=== PATIENT | female | born 1970 | race Caucasian/White ===

== ENCOUNTER 2017-05-24 17:19 | Emergency (ER) | payer OTHER ==
--- NOTE | 2017-05-24 18:01 | EDM.PDOC ---
ED HPI GENERAL MEDICAL PROBLEM - General Chief Complaint: Head Injury Stated Complaint: HEADACHE (HIT IN HEAD WITH VASE) Time Seen by Provider: 05/24/17 17:37 Source of Information: Reports: Patient History Limitations: Reports: No Limitations - History of Present Illness INITIAL COMMENTS - FREE TEXT/NARRATIVE: Patient is a 47-year-old female who presents to the ED complaining of pain to the posterior aspect of her left ear. Patient states this past Wednesday with moving a shelf a 4 pound ceramic vas fell from approximately 5 feet hitting her on the left side of the head. There was no loss consciousness. States she's had pain to that site since with no drainage from the ear. She also has some mild tenderness to the left lateral neck. Chronically has numbness and tingling to her hands secondary to carpal tunnel's syndrome. Denies any worsening symptoms. Denies vision changes or weakness to upper extremities. She has been eating and drinking well. Developed some mild nausea today. She does not describe the headache is worse headache of her life. She offers no additional complaints. She has a past medical history of type 2 diabetes and currently on no medications. Headache Pain Score (Numeric/FACES): 4 - Related Data Allergies Allergy/AdvReac Type Severity Reaction Status Date / Time No Known Allergies Allergy Verified 05/24/17 17:29 Home Meds: Home Meds . [No Known Home Meds] 05/24/17 [History] Past Medical History Endocrine/Metabolic History: Reports: Diabetes, Type II Social & Family History - Tobacco Use Smoking Status *Q: Never Smoker - Recreational Drug Use Recreational Drug Use: No ED ROS GENERAL - Review of Systems Review Of Systems: See Below Constitutional: Reports: No Symptoms HEENT: Reports: Ear Pain. Denies: Vision Change GI/Abdominal: Reports: Nausea. Denies: Vomiting Musculoskeletal: Reports: Neck Pain (lateral, no midlinepain). Denies: Shoulder Pain Skin: Reports: Bruising (posterior aspect of the left ear) Neurological: Reports: No Symptoms ED EXAM, HEAD INJURY - Physical Exam Exam: See Below Exam Limited By: No Limitations General Appearance: Alert, WD/WN, No Apparent Distress Head: Other (MIld bruising to the posterior aspect of the left ear. Pain with palpation with bony abnormalities noted. Minimal pain present. No swelling noted. ). No: Scalp Abrasions, Scalp Ecchymosis, Scalp Hematoma, Scalp Tenderness, Raccoon Eyes Nexus Criteria: No: Posterior, Midline Cervical Tenderness, Evidence of Intoxication, Altered Level of Consciousness, Focal Neurological Deficit, Painful Distraction Injuries Eyes: Bilateral Eye: EOMI, PERRL Ears: Hearing Grossly Normal Nose: Normal Inspection Throat/Mouth: Normal Inspection, Normal Oropharynx, Normal Voice, No Airway Compromise Neck: Full Range of Motion, Normal Alignment, Normal Inspection, Tenderness ( along the left trapezius). No: Tender Lateral, Tender Midline Respiratory: No Respiratory Distress, Lungs Clear, Normal Breath Sounds, No Accessory Muscle Use Cardiovascular: Normal Peripheral Pulses, Regular Rate, Rhythm Neurologic: chef's assistant II-XII nml As Tested, No Motor/Sensory Deficits, Alert, Normal Mood/Affect, Oriented x 3 Skin: Warm/Dry Course - Vital Signs Last Recorded V/S: Last Vital Signs Temp 96.8 F 05/24/17 17:30 Pulse 63 05/24/17 17:30 Resp BP 141/71 H 05/24/17 17:30 Pulse Ox 100 05/24/17 17:30 - Re-Assessments/Exams Free Text/Narrative Re-Assessment/Exam: On examination mild bruising noted the posterior aspect of the left ear with pain on palpation. No bony abnormalities noted. Ear canal left side is clear with no fluid present. No raccoon eyes present. Suspect bruise with concussion symptoms. Low probability for basilar skull fracture. Offered to obtain CT of the head to patient to which she decline. I agree with no proceeding with this study. Patient will be discharged home with instructions as documented. Discussed patient with Dr. Bojorquez he agrees with plan. Departure - Departure Time of Disposition: 18:01 Disposition: Home, Self-Care 01 Condition: Good Clinical Impression: Nausea Blunt head trauma Qualifiers: Encounter type: initial encounter Qualified Code(s): S09.8XXA - Other specified injuries of head, initial encounter Concussion Qualifiers: Encounter type: initial encounter Loss of consciousness presence/duration: without LOC Qualified Code(s): S06.0X0A - Concussion without loss of consciousness, initial encounter - Discharge Information Instructions: Concussion, Adult, [id number], Post-Concussion Syndrome, Easy- to-Read, Head Injury, Adult, [id number] Referrals: Yudith Bullard DO [Primary Care Provider] - Forms: ED Department Discharge, ED Return to Work/School Form Additional Instructions: As discussed, refrain from any strenuous activity for the next week. Suspect the nausea associated with postconcussion syndrome. Utilize Tylenol and ibuprofen in alternating fashion for pain. Can apply ice to affected area 4 times a day, 20 minutes in duration, do not apply ice directly on the skin. Follow-up with PCP as needed. Return to the ED for any new or worsening symptoms.
== END 2017-05-24 18:20 | disposition home or self-care (01) ==
LOC: JD.ED 17:19
DX: S06.0X0A Concussion without loss of consciousness, initial encounter (principal); S00.432A Contusion of left ear, initial encounter; R11.0 Nausea; E11.9 Type 2 diabetes mellitus without complications; W20.8XXA Other cause of strike by thrown, projected or falling object, initial encounter
CPT/HCPCS: 99282; 99283

== ENCOUNTER 2019-04-18 07:12 | Day surgery (SDC) | payer OTHER ==
[~2019-04-18 07:12] MED LIST: Lidocaine 1%/Sod Bicarbonate in NS 8.4% 1 ML Syringe IDERM PRN; Sodium Chloride 0.9% 10 ML Syringe FLUSH PRN
[2019-04-18] MEDS ORDERED: Rocuronium 50 MG/5 ML Vial ONE (07:15)
[2019-04-18] MEDS ORDERED: Propofol 200 MG/20 ML SDV ONE (07:15)
[2019-04-18] MEDS ORDERED: Ondansetron 4 MG/2 ML SDV ONE (07:15)
[2019-04-18] MEDS ORDERED: ceFAZolin 1 GM Vial ONE (07:15)
[2019-04-18] MEDS ORDERED: Lactated Ringers 1,000 ML ONE (07:15)
[2019-04-18] MEDS ORDERED: Lidocaine 1% 4 ML ONE (07:15)
[2019-04-18] MEDS ORDERED: Ketorolac 15 MG/ML SDV ONE (07:16)
[2019-04-18] MEDS ORDERED: fentaNYL 250 MCG/5 ML SDV ONE (07:16)
[2019-04-18] MEDS ORDERED: Midazolam 1 MG/ML 2 ML SDV ONE (07:16)
[2019-04-18] MEDS ORDERED: Dexamethasone 4 MG/ML 5 ML MDV ONE (07:16)
[2019-04-18] MEDS: Lactated Ringers 1,000 ML IV SCH ×2 (07:35→13:14)
[2019-04-18] MEDS: Lidocaine 1% with EPINEPHrine 1:100,000 20 ML MDV ONE ×2 (08:36→08:47)
[2019-04-18] MEDS ORDERED: ePHEDrine/Normal Saline 25 MG/5 ML Syringe ONE (08:41)
[2019-04-18] MEDS ORDERED: Ondansetron 4 MG/2 ML SDV IVPUSH PRN (08:49)
[2019-04-18] MEDS ORDERED: HYDROmorphone 0.5 MG/0.5 ML Syringe IVPUSH PRN (08:49)
[2019-04-18] MEDS ORDERED: fentaNYL 100 MCG/2 ML SDV IVPUSH PRN (08:49)
--- NOTE | 2019-04-18 08:49 | PCM.PREANE ---
Preanesthetic Assessment - Anesthesia/Transfusion/Family Hx Anesthesia History: Prior Anesthesia Without Reaction Family History of Anesthesia Reaction: No - Review of Systems General: No Symptoms Pulmonary: No Symptoms Cardiovascular: No Symptoms, Other (Bradycardia) Gastrointestinal: Other ( GERD, Gastric Sleeve in November, controlled with medication. No symptoms today. ) Neurological: Other (Chronic Throacic back pain and spasms. ) Other: Reports: Diabetes (Type II. Glucose 118 mg/dl at 0735), Thyroid Problems (Rocio diagnosed 3 months ago on synthroid daily.) - Physical Assessment NPO Status Date: 04/17/19 NPO Status Time: 21:00 Vital Signs: Last Vital Signs Temp 36.2 C 04/18/19 07:25 Pulse 47 L 04/18/19 07:25 Resp 16 04/18/19 07:25 BP 128/65 04/18/19 07:25 Pulse Ox 99 04/18/19 07:25 Height: 1.68 m Weight: 80.286 kg ASA Class: 2 Mental Status: Alert & Oriented x3 Airway Class: Mallampati = 1 Dentition: Reports: Normal Dentition Thyro-Mental Finger Breadths: 3 Mouth Opening Finger Breadths: 3 ROM/Head Extension: Full Lungs: Clear to Auscultation, Normal Respiratory Effort Cardiovascular: Regular Rhythm, Bradycardia - Lab Values: Laboratory Last Values WBC 4.70 K/mm3 (3.98-10.04) 04/18/19 07:35 RBC 4.76 M/mm3 (3.98-5.22) 04/18/19 07:35 Hgb 14.1 gm/dl (11.2-15.7) 04/18/19 07:35 Hct 42.9 % (34.1-44.9) 04/18/19 07:35 MCV 90.1 fl (79.4-94.8) 04/18/19 07:35 MCH 29.6 pg (25.6-32.2) 04/18/19 07:35 MCHC 32.9 g/dl (32.2-35.5) 04/18/19 07:35 RDW Std Deviation 41.1 fL (36.4-46.3) 04/18/19 07:35 Plt Count 257 K/mm3 (182-369) 04/18/19 07:35 MPV 10.1 fl (9.4-12.3) 04/18/19 07:35 Neut % (Auto) 51.1 % (34.0-71.1) 04/18/19 07:35 Lymph % (Auto) 35.7 % (19.3-51.7) 04/18/19 07:35 [place] % (Auto) 9.4 % (4.7-12.5) 04/18/19 07:35 Eos % (Auto) 3.6 (0.7-5.8) 04/18/19 07:35 Baso % (Auto) 0.2 % (0.1-1.2) 04/18/19 07:35 Neut # (Auto) 2.40 K/mm3 (1.56-6.13) 04/18/19 07:35 Lymph # (Auto) 1.68 K/mm3 (1.18-3.74) 04/18/19 07:35 [place] # (Auto) 0.44 K/mm3 (0.24-0.36) H 04/18/19 07:35 Eos # (Auto) 0.17 K/mm3 (0.04-0.36) 04/18/19 07:35 Baso # (Auto) 0.01 K/mm3 (0.01-0.08) 04/18/19 07:35 - Imaging/EKG Impressions: Sinus Bradycardia noted at a rate of 47 bpm. Consider KADE and Mild LAD. Read per Dr. Blanco this morning. Patient does walk 3 miles 4 x per week. Denies any other cardiac symptoms, TSH added to morning labs. Previous heart rate documented at 79 during preop interview. Discussed with Dr. Davison and Dr. Blanco both agreeable with proceeding with surgery today. Kelly is also agreeable with proceeding. Dr. Davison with arrange follow up with primary care post op if needed. - Allergies Allergies/Adverse Reactions: Allergies Allergy/AdvReac Type Severity Reaction Status Date / Time [id number] Reductase Allergy Cannot Verified 04/17/19 13:51 Inhibitor Remember - Acknowledgements Anesthesia Type Planned: General Anesthesia Pt an Appropriate Candidate for the Planned Anesthesia: Yes Alternatives and Risks of Anesthesia Discussed w Pt/Guardian: Yes Pt/Guardian Understands and Agrees with Anesthesia Plan: Yes PreAnesthesia Questionnaire HEENT History: Reports: None Cardiovascular History: Reports: High Cholesterol Respiratory History: Reports: None Genitourinary History: Reports: Urinary Incontinence ABALONE PROCESSOR History: Reports: Endometrial Ablation, Musculoskeletal History: Reports: Back Pain, Chronic Neurological History: Reports: None Psychiatric History: Reports: None Endocrine/Metabolic History: Reports: Diabetes, Type II, Other (See Below) Other Endocrine/Metabolic History: hashimotos Hematologic History: Reports: None Immunologic History: Reports: None Oncologic (Cancer) History: Reports: None Dermatologic History: Reports: None - Past Surgical History Head Surgeries/Procedures: Reports: None HEENT Surgical History: Reports: None Cardiovascular Surgical History: Reports: None Respiratory Surgical History: Reports: None GI Surgical History: Reports: Bariatric Procedure, EGD Female Surgical History: Reports: Tubal Ligation Neurological Surgical History: Reports: None Musculoskeletal Surgical History: Reports: None Oncologic Surgical History: Reports: None Dermatological Surgical History: Reports: None - SUBSTANCE USE Smoking Status *Q: Former Smoker Recreational Drug Use History: No - HOME MEDS Home Medications: Home Meds Calcium Citrate/Vitamin D3 [Citracal + D Maximum Caplet] 1 tab PO TID 04/17/19 [ History] Cimetidine [Tagamet Hb] 200 mg PO BEDTIME 04/17/19 [History] Cyclobenzaprine [Flexeril] 5 mg PO BEDTIME PRN 04/17/19 [History] Dapagliflozin Propanediol [Farxiga] 10 mg PO DAILY 04/17/19 [History] Levothyroxine 25 mcg PO DAILY 04/17/19 [History] Multivitamin [Daily Mari] 1 tab PO DAILY 04/17/19 [History] Pantoprazole Sodium [Protonix] 40 mg PO DAILY 04/17/19 [History] Promethazine [Phenergan] 25 mg PO Q4H PRN 04/17/19 [History] Triamcinolone Acetonide [Kenalog 0.1% Crm] 1 dose TOP ASDIRECTED PRN 04/17/19 [ History] oxyCODONE HCl [Oxycodone HCl] 10 mg PO Q6H PRN 04/17/19 [History] - CURRENT (IN HOUSE) MEDS Current Meds: Current Medications Lactated Ringer's (Ringers, Lactated) 1,000 mls @ 125 mls/hr IV ASDIRECTED RASHEL Stop: 04/18/19 23:00 Last Admin: 04/18/19 07:35 Dose: 125 mls/hr Lidocaine/Sodium Bicarbonate (Buffered Lidocaine 1% In Ns 8.4%) 0.25 ml IDERM ONETIME PRN PRN Reason: Prior to IV Start Stop: 04/18/19 18:00 Last Admin: 04/18/19 07:34 Dose: 0.25 ml Sodium Chloride (Saline Flush) 10 ml FLUSH ASDIRECTED PRN PRN Reason: Keep Vein Open Stop: 04/18/19 18:00 Discontinued Medications Cefazolin Sodium (Ancef) Confirm Administered Dose 2 gm .ROUTE .STK-MED ONE Stop: 04/18/19 07:16 Dexamethasone (Dexamethasone) Confirm Administered Dose 20 mg .ROUTE .STK-MED ONE Stop: 04/18/19 07:17 Fentanyl (Sublimaze) Confirm Administered Dose 250 mcg .ROUTE .STK-MED ONE Stop: 04/18/19 07:17 Lidocaine HCl (Xylocaine-Mpf 1%) Confirm Administered Dose 4 mls @ as directed .ROUTE .STK-MED ONE Stop: 04/18/19 07:16 Lactated Ringer's (Ringers, Lactated) Confirm Administered Dose 1,000 mls @ as directed .ROUTE .STK-MED ONE Stop: 04/18/19 07:16 Ketorolac Tromethamine (Toradol) Confirm Administered Dose 15 mg .ROUTE .STK- MED ONE Stop: 04/18/19 07:17 Lidocaine/Epinephrine (Xylocaine 1% With Epinephrine 1:100,000) Confirm Administered Dose 20 ml .ROUTE .STK-MED ONE Stop: 04/18/19 07:20 Midazolam HCl (Versed 1 Mg/Ml) Confirm Administered Dose 2 mg .ROUTE .STK-MED ONE Stop: 04/18/19 07:17 Ondansetron HCl (Zofran) Confirm Administered Dose 4 mg .ROUTE .STK-MED ONE Stop: 04/18/19 07:16 Propofol (Diprivan 20 Ml) Confirm Administered Dose 400 mg .ROUTE .STK-MED ONE Stop: 04/18/19 07:16 Rocuronium [place] (Zemuron) Confirm Administered Dose 50 mg .ROUTE .STK-MED ONE Stop: 04/18/19 07:16
[2019-04-18] MEDS ORDERED: Neostigmine Methylsulfate 1 MG/ML 5 ML Syringe ONE (09:19)
--- NOTE | 2019-04-18 10:24 | PCM.POSTAN ---
POST ANESTHESIA ASSESSMENT - MENTAL STATUS Mental Status: Alert, Oriented - VITAL SIGNS Vital Signs: Last Vital Signs Temp 36.2 C 04/18/19 07:25 Pulse 47 L 04/18/19 07:25 Resp 16 04/18/19 07:25 BP 128/65 04/18/19 07:25 Pulse Ox 99 04/18/19 07:25 - RESPIRATORY Respiratory Status: Respiratory Rate WNL, Airway Patent, O2 Saturation Stable, Supplemental Oxygen - CARDIOVASCULAR CV Status: Pulse Rate WNL, Blood Pressure Stable - GASTROINTESTINAL GI Status: No Symptoms - PAIN Pain Score: 0 - POST OP HYDRATION Hydration Status: Adequate & Stable
--- NOTE | 2019-04-18 10:26 | PCM.OPNOTE ---
- General Post-Op/Procedure Note Date of Surgery/Procedure: 04/18/19 Operative Procedure(s): Total vaginal hysterectomy. Transobturator mid urethral sling Findings: SVE with mobile, midposition uterus. No adnexal fullness or abnormality. Pre Op Diagnosis: Abnormal uterine bleeding - failed endometrial ablation. Stress urinary incontinence Post-Op Diagnosis: Same Anesthesia Technique: General ET Tube Primary Surgeon: Yue Davison Secondary Surgeon: Jarrett Handy Anesthesia Provider: Daylin Ruiz Reason Spring Coiler Was Necessary: Speed, safety of procedure Pathology: Cervix and uterus sent to pathology for further evaluation Fluid Replacement, Intraop: 1,600 Output, Urine Amount: 500 EBL in mLs: 300 (majority from dissection for midurethral sling) Complications: None Condition: Good Free Text/Narrative:: The risks, benefits, indications, potential complications, and alternatives were explained to the patient and informed consent obtained. The patient was taken to the Operating Room where general anesthesia was induced without complication and found to be adequate. The patient was placed in dorsal lithotomy with Yon stirrups and an exam under anesthesia revealed the findings detailed above. The patient was then prepped and draped in the usual sterile fashion. Bullock catheter was placed into the bladder. A weighted speculum was placed in the vagina, and the cervix was grasped with a double tooth tenaculum. The cervix was injected circumferentially with 10 cc of 1% lidocaine with epinephrine. The cervix was then circumferentially incised with a scalpel. The posterior cul-de-sac was entered sharply without difficulty. One 0-Vicryl pop-off sutures were placed posteriorly to include the posterior vaginal mucosa and the posterior peritoneum. The short weighted speculum was replaced with a long weighted speculum into the peritoneal cavity posteriorly. The bladder was dissected away from the pubovesical cervical fascia anteriorly with a sponge and blunt dissection. The uterosacral ligaments were grasped on either side with the Ligasure, cauterized, and transected Hemostasis was assured. A raytec was used for further blunt dissection of the bladder away from the pubovesical cervical fascia and then the anterior cul de sac was entered sharply with Metzenbaum scissors. the cardinal ligaments were then serially clamped with the Ligasure on both sides, cauterized, and transected. The uterine arteries were then clamped with the Ligasure, cauterized, and transected. Hemostasis was adequate. Both cornua were then clamped, cauterized, and transected and the uterus was removed. There was slight bleeding from the patient's left angle at the vaginal cuff. This was controlled with several interrupted sutures of 0 vicryl placed in a figure of eight fashion. The posterior peritoneum was then closed with a running, locked suture of 0 Vicryl. The vaginal cuff was closed in a running locked fashion with 0-Vicryl. Hemostasis was noted. Next attention turned to placement of midurethral sling. The adductor longus tendons were identified bilaterally. An incision was made 1 cm below the tendons bilaterally. 1% lidocaine with epinephrine was injected in the midurethral area. A 1.5 cm vertical incision under the midurethra was made with a scalpel. Metzenbaum scissors were used to dissect the vaginal tissue away from the underlying periurethral tissue on the right side to the level of the pubic rami. With the surgeons finger tip in the vaginal tunnel, the Helical needle, with the handle orientated to the contralateral shoulder, was pushed through the patient's groin skin incision until the obturator membrane was perforated and the needle tip was rotated toward the vaginal incision. The mesh was attached and the needle was retracted. The same procedure was performed on the left side. The sling was adjusted to lie under the midurethra without tension with aid of Hegar dilator. Excess sling was trimmed and the groin incisions closed with Dermabond adhesive. The vaginal incision was closed with 3-0 Vicryl in a running fashion. Good hemostasis was noted. Catheter removed at the end of the case. All sponge, lap, needle, and instrument counts were correct x 2. The patient tolerated the procedure well and there were no complications.
[2019-04-18] MEDS ORDERED: Acetaminophen/oxyCODONE 325-5 MG Tab PO PRN (11:06)
[2019-04-18] MEDS ORDERED: Promethazine 25 MG Tab PO PRN (11:24)
--- NOTE | 2019-04-18 13:34 | PCM48HPAN ---
Post Anesthesia Note - EVALUATION WITHIN 48HRS OF ANESTHETIC Vital Signs in Normal Range: Yes Patient Participated in Evaluation: Yes Respiratory Function Stable: Yes Airway Patent: Yes Cardiovascular Function Stable: Yes Hydration Status Stable: Yes Pain Control Satisfactory: Yes Nausea and Vomiting Control Satisfactory: Yes Mental Status Recovered: Yes Vital Signs: Last Vital Signs Temp 37.4 C 04/18/19 12:30 Pulse 63 04/18/19 12:30 Resp 16 04/18/19 12:30 BP 128/80 04/18/19 12:30 Pulse Ox 98 04/18/19 12:30
== END 2019-04-18 12:45 | disposition home or self-care (01) ==
LOC: JD.SDS 07:12
PROVIDERS: ATTEND Obstetrics & Gynecology
DX: N92.0 Excessive and frequent menstruation with regular cycle (principal); N72 Inflammatory disease of cervix uteri; N39.3 Stress incontinence (female) (male); E11.9 Type 2 diabetes mellitus without complications; E78.00 Pure hypercholesterolemia, unspecified; K21.9 Gastro-esophageal reflux disease without esophagitis; M54.5 Low back pain; Z79.899 Other long term (current) drug therapy
CPT/HCPCS: 36415; 57288; 58260; 80048; 84439; 84443; 85025; 93005; A9270; J0690; J1100; J1885; J2001; J2250; J2405; J2704; J2710; J3010; J7050; J7120; J8597; 00944

== ENCOUNTER 2022-09-07 06:56 | Day surgery (SDC) | payer OTHER ==
[~2022-09-07 06:56] MED LIST changes: +Bupivacaine 0.25% 10 ML SDV ONE; +Lactated Ringers 1,000 ML IV SCH; +Lidocaine 1% 10 ML MDV ONE; +Midazolam 1 MG/ML 2 ML SDV ONE; +Propofol 200 MG/20 ML SDV ONE; +Sodium Chloride 0.9% 10 ML Syringe FLUSH SCH; +fentaNYL 100 MCG/2 ML SDV ONE
== END 2022-09-07 08:45 | disposition home or self-care (01) ==
LOC: JD.SDS 06:56
PROVIDERS: ATTEND Orthopaedic Surgery
DX: G56.03 Carpal tunnel syndrome, bilateral upper limbs (principal); E78.00 Pure hypercholesterolemia, unspecified; E11.9 Type 2 diabetes mellitus without complications; Z79.899 Other long term (current) drug therapy; Z87.891 Personal history of nicotine dependence; Z79.4 Long term (current) use of insulin; Z79.84 Long term (current) use of oral hypoglycemic drugs; Z88.8 Allergy status to other drugs, medicaments and biological substances
CPT/HCPCS: 64721; J2250; J2704; J3010; J3490; J7120; 01810

== ENCOUNTER 2022-09-21 07:00 | Day surgery (SDC) | payer OTHER ==
[~2022-09-21 07:00] MED LIST changes: -Bupivacaine 0.25% 10 ML SDV ONE; -Lidocaine 1% 10 ML MDV ONE; -Midazolam 1 MG/ML 2 ML SDV ONE; -Propofol 200 MG/20 ML SDV ONE; -fentaNYL 100 MCG/2 ML SDV ONE
[2022-09-21] MEDS ORDERED: Lidocaine 1% 10 ML MDV ONE (07:15)
[2022-09-21] MEDS ORDERED: Bupivacaine 0.25% 10 ML SDV ONE (07:15)
[2022-09-21] MEDS ORDERED: Lidocaine 1% 2 ML ONE (07:24)
[2022-09-21] MEDS ORDERED: Midazolam 1 MG/ML 2 ML SDV ONE (07:24)
[2022-09-21] MEDS ORDERED: Propofol 200 MG/20 ML SDV ONE (07:24)
[2022-09-21] MEDS ORDERED: fentaNYL 100 MCG/2 ML SDV ONE (07:24)
== END 2022-09-21 09:28 | disposition home or self-care (01) ==
LOC: JD.SDS 07:00
PROVIDERS: ATTEND Orthopaedic Surgery
DX: G56.03 Carpal tunnel syndrome, bilateral upper limbs (principal); G56.11 Other lesions of median nerve, right upper limb; E11.9 Type 2 diabetes mellitus without complications; E78.00 Pure hypercholesterolemia, unspecified; K21.9 Gastro-esophageal reflux disease without esophagitis; M54.50 Low back pain, unspecified; G89.29 Other chronic pain; Z79.899 Other long term (current) drug therapy; Z88.8 Allergy status to other drugs, medicaments and biological substances; Z98.890 Other specified postprocedural states; Z87.891 Personal history of nicotine dependence
CPT/HCPCS: 64721; J2250; J2704; J3010; J3490; J7120; 01810